=== PATIENT | female | born 1990 | race Two or more races ===

== ENCOUNTER 2024-02-19 02:27 | Emergency (ER) | payer OTHER, SELFPAY ==
--- NOTE | 2024-02-19 | ECG_ITS ---
Test Reason : OVERDOSE Blood Pressure : / mmHG Vent. Rate : 060 BPM Atrial Rate : 060 BPM P-R Int : 130 ms QRS Dur : 088 ms QT Int : 396 ms P-R-T Axes : -12 079 042 degrees QTc Int : 396 ms Normal sinus rhythm Normal ECG No previous ECGs available Referred By: Generic ED Physician Electronically Signed By:ROWDY DUGAN
[2024-02-19 02:30] VITALS: BP 144/105; PULSE 103; RESP 24; TEMP 36.5; O2SAT 100; BMI 28.6
[2024-02-19 02:47] VITALS: BP 136/84; PULSE 83; RESP 15; TEMP 36.7; O2SAT 100
--- NOTE | 2024-02-19 02:57 | PC.NURSE ---
Patient arrived and changed over into hospital attire, initiated 1:1 coverage. took hair anna, wristlet, and earrings, along with cell phone. Clothing secured in tamanna port shelf 1.
--- NOTE | 2024-02-19 03:15 | PC.NURSE ---
Addendum entered by Lois Martines 02/19/24 04:26: Poison prevention called, provider Carmina made aware of recommendations. Addendum entered by Lois Martines 02/19/24 03:59: Pt reports taking pills at approximately 0100. Original Note: This technical writer and editor assumed care of this Pt at this time. Pt A&Ox3, tearful, reports she took an unknown amount of her prescribed adderall. Pt reports she let them devolve in her mouth and then had juice, Pt reports vomiting shortly after and did not see pill fragments. Spouse at bedside. 1:1 at bedside for safety.
[2024-02-19 03:30] LABS: Hematocrit 36.8 % (37.0-47.0); Hemoglobin 12.3 g/dl (12.0-16.0); Mean Corpuscular HGB Conc 33.4 g/dl (31.0-35.0); Mean Corpuscular Hemoglobin 25.8 pg (27.0-33.0); Mean Corpuscular Volume 77.1 fL (80.0-98.0); Mean Platelet Volume 9.8 fL (9.4-12.3); Platelet Count 286 X10*3/uL (160-400); Red Blood Count 4.77 X10*6/uL (4.20-5.50); White Blood Count 8.1 X10*3/uL (4.8-10.8)
--- NOTE | 2024-02-19 03:43 | ED_ITS ---
HPI - Psych General Chief Complaint: Psychiatric Symptoms Stated Complaint: OD adderall - intentional Time Seen by Provider: 02/19/24 03:11 Source: patient Mode of arrival: ambulatory Limitations: no limitations History of Present Illness ED Provider: daylin WYMAN Narrative: Patient's history of ADHD under increased stress took about 5-10 pills of 20 mg adderall at around at around 01:30. Patient had medicine in her hand putting in her mouth taking spitting it out putting in the mouth spitting it out and then forcefully vomited does not nausea and tearful no prior history of overdose in the past Related Data Allergies Allergy/AdvReac Type Severity Reaction Status Date / Time No Known Allergies Allergy Verified 02/19/24 02:32 Review of Systems 2 Review of Systems: Yes all other systems are reviewed and are negative [facility], [facility] Social History Social History Smoked in Last 30 Days: No Substance Use Type: Marijuana Advance Directives: No Patient : No Physical Exam 2 Vital Signs: Vital Signs: Last Vital Signs Temp 98.0 F 02/19/24 02:47 Pulse 83 02/19/24 02:47 Resp 15 02/19/24 02:47 BP 136/84 02/19/24 02:47 Pulse Ox 100 02/19/24 02:47 O2 Del Method Room Air 02/19/24 02:47 BMI result Body Mass Index 28.6 Appearance: Alert. Oriented X3. No acute distress. Tearful anxious denies any SI Eyes: PERRLA, No Nystagmus ENT: Pharynx normal. Oral Mucosa moist Neck: Normal inspection. Neck supple. CVS: Normal heart rate and rhythm. Pulses normal. Respiratory: No respiratory distress. Equal air entry bilateral, no wheezing/rales/rhonchi Abdomen: Soft and nontender. Bowel sounds are present, no mass palpable, no CVA tenderness Skin: Skin warm and dry. Normal skin color. Normal skin turgor. Extremities: No lower extremity edema. No calf tenderness Neuro: Oriented X 3. No motor deficit. Medications Administered Discontinued Medications Generic Name Dose Route Start Last Admin Trade Name Freq PRN Reason Stop Dose Admin Acetaminophen 650 mg 02/19/24 06:40 02/19/24 07:04 Acetaminophen 325 Mg Tablet PO 02/19/24 06:41 650 mg ONCE ONE Administration Sodium Chloride 1,000 mls @ 999 mls/hr 02/19/24 04:15 02/19/24 05:56 Ns IV 02/19/24 05:15 Infused .Q1H1M ONE Infusion Ondansetron HCl 4 mg 02/19/24 05:55 02/19/24 05:59 Ondansetron Hcl 4 Mg/2 Ml Vial IVPUSH 02/19/24 05:56 4 mg ONCE ONE Administration Medical Decision Making Medical Decision Making [facility] Narrative: Patient with the alleged overdose on Adderall still patient's heart rate is 60 after 4 hours of medication intake will continue to watch get care team involved Differential Diagnosis Differential Diagnoses: The differential diagnosis associated with the presentation includes Lab Data [facility] Lab Attestation statement: I reviewed the patient's lab results. 02/19/24 03:26 02/19/24 03:26 Labs: Lab Results 02/19/24 02/19/24 02/19/24 Range/Units 03:26 04:31 04:33 WBC 8.1 (4.8-10.8) X10*3/uL RBC 4.77 (4.20-5.50) X10*6/uL Hgb 12.3 (12.0-16.0) g/dl Hct 36.8 L (37.0-47.0) % MCV 77.1 L (80.0-98.0) fL MCH 25.8 L (27.0-33.0) pg MCHC 33.4 (31.0-35.0) g/dl RDW 16.0 (11.0-16.0) % Plt Count 286 (160-400) X10*3/uL MPV 9.8 (9.4-12.3) fL Absolute Nucleated RBC 0.000 (0.0-0.012) X10*3/uL Nucleated RBC % (auto) 0.0 (0.0-0.2) /100WBC Sodium 139 (135-145) mmol/L Potassium 4.2 (3.3-5.1) mmol/L Chloride 107 (96-108) mmol/L Carbon Dioxide 19 L (22-29) mmol/L Anion Gap 17 (12-20) BUN 12 (9-16) mg/dL Creatinine 0.92 (0.5-1.4) mg/dL Estim Creat Clear Calc 89.8 Estimated GFR > 60 Random Glucose 103 (60-115) mg/dL Lactic Acid 1.7 (0.5-2.0) mmol/L Calcium 9.7 (8.4-10.2) mg/dL Magnesium 2.4 (1.6-2.6) mg/dL Total Bilirubin 0.3 (0.0-1.0) mg/dL Direct Bilirubin 0.1 (0.0-0.5) mg/dL AST 30 (5-31) U/L ALT 23 (0-31) U/L Alkaline Phosphatase 73 (39-117) U/L Total Creatine Kinase 308 H (26-140) U/L Total Protein 7.7 (6.5-8.0) g/dL Albumin 4.4 (3.5-5.0) g/dL Beta HCG, Quant < 2 mIU/mL Urine Color Yellow Urine Appearance Clear Urine pH 6.5 (5.0-9.0) Ur Specific [place] 1.010 (1.005-1.025) Urine Protein Negative (Neg-Trace) mg/dL Urine Glucose (UA) Negative (Negative) mg/dL Urine Ketones Negative (Negative) mg/dL Urine Blood Trace H (Negative) Urine Nitrite Negative (Negative) Ur Leukocyte Esterase Trace H (Negative) Urine RBC 0-2 (0-2) /HPF Urine WBC 0-5 (0-5) /HPF Ur Squamous Epith Cells 3-5 (0-2) /HPF Urine Bacteria None Seen (None Seen) Hyaline Casts 0-2 (0-2) /LPF Salicylates < 5.0 L (15-30) mg/dL Urine Opiates Screen Not Detected (Not Detect) Ur Buprenorphine Scrn Not Detected (Not Detect) ng/mL Ur Oxycodone Screen Not Detected (Not Detect) ng/mL Urine Methadone Screen Not Detected (Not Detect) ng/mL Urine Fentanyl Screen Not Detected (Not Detect) Acetaminophen < 3 (<30) mcg/mL Ur Barbiturates Screen Not Detected (Not Detect) Ur Phencyclidine Scrn Not Detected (Not Detect) Ur Amphetamines Screen POSITIVE H (Not Detect) U Benzodiazepines Scrn Not Detected (Not Detect) Urine Cocaine Screen Not Detected (Not Detect) U Marijuana (THC) Screen Not Detected (Not Detect) Ethyl Alcohol < 10 mg/dL Independent Interpretation I performed an independent interpretation of an: EKG Interpretation: Normal sinus rhythm heart rate 60 beats per minute normal interval normal axis no acute T-wave or ST changes no acute ischemia QTC 396msec Discharge Plan Discharge Clinical Impression: Depression, Overdose Patient Disposition: Still a Patient Interventions: Webb-Suicide Risk Severity Scale Last Done: 02/19/24 02:47 Print Language: Belizean
[2024-02-19 03:50] LABS: Acetaminophen LAB < 3 mcg/mL (<30); Salicylate < 5.0 mg/dL (15-30)
[2024-02-19 03:54] LABS: Anion Gap 17 (12-20); Blood Urea Nitrogen 12 mg/dL (9-16); Calcium 9.7 mg/dL (8.4-10.2); Carbon Dioxide 19 mmol/L (22-29); Chloride 107 mmol/L (96-108); Creatinine Clr Calc Pharmacy 89.8; Estimated Glomerular Filt Rate > 60; Ethanol < 10 mg/dL; Glucose Random 103 mg/dL (60-115); HCG Quantitative < 2 mIU/mL; Magnesium 2.4 mg/dL (1.6-2.6); Potassium 4.2 mmol/L (3.3-5.1); Sodium 139 mmol/L (135-145)
[2024-02-19] MEDS: 0.9 % Sodium Chloride 1,000 ML 999 ML IV (04:34)
[2024-02-19 04:38] LABS: Appearance Urine Clear; Color Urine Yellow; Glucose Urine UA Negative (Negative); Leukocyte Esterase Urine Trace (Negative); Nitrite Urine Negative (Negative); PH 6.5 (5.0-9.0); UMIC TRIGGER UACC YES; Urine Blood Trace (Negative); Urine Ketones Negative (Negative); Urine Protein Negative (Neg-Trace)
[2024-02-19 04:41] LABS: Bacteria Urine None Seen (None Seen); Hyaline Casts Urine 0-2 /LPF (0-2); RBC Urine 0-2 /HPF (0-2); WBC Urine 0-5 /HPF (0-5)
[2024-02-19 04:41] LABS: Alanine Aminotransferase 23 U/L (0-31); Albumin Level 4.4 g/dL (3.5-5.0); Alkaline Phosphatase 73 U/L (39-117); Aspartate Amino Transferase 30 U/L (5-31); Bilirubin Direct 0.1 mg/dL (0.0-0.5); Bilirubin Total 0.3 mg/dL (0.0-1.0); Total Protein 7.7 g/dL (6.5-8.0)
[2024-02-19 04:50] LABS: Amphetamine Screen Urine POSITIVE (Not Detect); Barbiturates, Urine Not Detected (Not Detect); Benzodiazepines Screen Urine Not Detected (Not Detect); Buprenorphine Scr Not Detected (Not Detect); Cannabinoid Screen Urine Not Detected (Not Detect); Cocaine Screen Urine Not Detected (Not Detect); Fentanyl, urine Not Detected (Not Detect); Methadone Screen, Urine Not Detected (Not Detect); Opiate Screen Urine Not Detected (Not Detect); Oxycodone Screen Urine Not Detected (Not Detect); Phencyclidine Screen Urine Not Detected (Not Detect)
[2024-02-19 04:51] LABS: Lactic Acid 1.7 mmol/L (0.5-2.0)
[2024-02-19] MEDS: ondansetron HCL 4 MG/2 ML VIAL IVPUSH (05:59)
[2024-02-19] MEDS: Acetaminophen 325 MG TABLET 650 MG PO (07:04)
--- NOTE | 2024-02-19 07:36 | PC.NURSE ---
This RN obtained 0730 labs via straight stick, emotional support provided to patient. Pt aware of plan of care at this time
[2024-02-19 07:48] LABS: VBG Base Excess 4.9 mmol/L; VBG HCO3 29 mmol/L (22-26); VBG pCO2 40 mmHg; VBG pH 7.46 (7.32-7.43); VBG pO2 39 mmHg
[2024-02-19 07:53] LABS: Lactic Acid 1.2 mmol/L (0.5-2.0)
[2024-02-19 07:55] LABS: Venous Blood Gas Refer to POC result
[2024-02-19 07:55] LABS: Alanine Aminotransferase 22 U/L (0-31); Albumin Level 4.7 g/dL (3.5-5.0); Alkaline Phosphatase 80 U/L (39-117); Anion Gap 13 (12-20); Aspartate Amino Transferase 29 U/L (5-31); Bilirubin Total 0.6 mg/dL (0.0-1.0); Blood Urea Nitrogen 9 mg/dL (9-16); Calcium 9.8 mg/dL (8.4-10.2); Carbon Dioxide 21 mmol/L (22-29); Chloride 108 mmol/L (96-108); Creatinine Clr Calc Pharmacy 98.3; Estimated Glomerular Filt Rate > 60; Glucose Random 115 mg/dL (60-115); Lipase 19 U/L (8-78); Potassium 3.9 mmol/L (3.3-5.1); Sodium 138 mmol/L (135-145); Total Protein 8.2 g/dL (6.5-8.0)
[2024-02-19 07:56] LABS: Acetaminophen LAB < 3 mcg/mL (<30); Salicylate < 5.0 mg/dL (15-30)
--- NOTE | 2024-02-19 10:04 | PC.NURSE ---
Pt continues to call staff to bedside, pt has multiple complaints of BEAULIEU, feeling like her throat is dry, then feeling like her throat is tight, pt is able to speak full sentences, she is very anxious and tearful at bedside. Labs returned, pt medically cleared by MD, at this time awaiting for [facility] to assess patient. Pt provded PO intake, food at this time. Emotional support continued to be provided to patient
[2024-02-19 10:05] VITALS: BP 132/75; PULSE 75; RESP 18; O2SAT 100
[2024-02-19 12:55] VITALS: BP 132/75; PULSE 75; RESP 18; TEMP 36.6; O2SAT 100
== END 2024-02-19 13:16 | disposition home or self-care (01) ==
PROVIDERS: Emergency Provider Internal Medicine; PCP Physician Assistant
DX: T43.622A Poisoning by amphetamines, intentional self-harm, initial encounter (principal); R45.851 Suicidal ideations; F33.1 Major depressive disorder, recurrent, moderate; R10.2 Pelvic and perineal pain; R11.10 Vomiting, unspecified; Z79.899 Other long term (current) drug therapy; Y92.89 Other specified places as the place of occurrence of the external cause; Z51.81 Encounter for therapeutic drug level monitoring
CPT/HCPCS: 36415; 80048; 80053; 80076; 80143; 80179; 80307; 81001; 82550; 82803; 83605; 83690; 83735; 84702; 85027; 93005; 96361; 96374; 99285; J2405

== ENCOUNTER → 2024-02-19 03:07 | Outpatient (BNV) | payer OTHER, SELFPAY | PROVIDERS: Emergency Provider Internal Medicine; PCP Physician Assistant; Visit Provider Internal Medicine | DX: R41.82 Altered mental status, unspecified (principal) | CPT/HCPCS: 93010 ==

== ENCOUNTER 2024-06-25 21:01 | Inpatient (IN) | payer OTHER, SELFPAY ==
--- NOTE | 2024-06-25 | ECG_ITS ---
Test Reason : OD Blood Pressure : */* mmHG Vent. Rate : 70 BPM Atrial Rate : 70 BPM P-R Int : 134 ms QRS Dur : 86 ms QT Int : 412 ms P-R-T Axes : 51 76 25 degrees QTcB Int : 444 ms Normal sinus rhythm Nonspecific T wave abnormality Abnormal ECG When compared with ECG of 19-Feb-2024 03:07, Nonspecific T wave abnormality, worse in Anterior leads Referred By: Azul Rg Electronically Signed By: ROWDY DUGAN
[2024-06-25 21:19] VITALS: BP 133/80; PULSE 70; O2SAT 100
[2024-06-25 21:20] VITALS: BP 117/69; PULSE 71; RESP 13; TEMP 36.6; O2SAT 100; BMI 29.1
[2024-06-25 21:24] VITALS: BP 117/69; PULSE 73; RESP 12; TEMP 36.6; O2SAT 100
--- NOTE | 2024-06-25 21:38 | PC.NURSE ---
Addendum entered by Carlene Garcia RN 06/25/24 22:45: belongings on shelf 1 in the [facility] Original Note: pt biba from home voluntarily, SI attempt, pt is calm and cooperative. Pt changed over placed on the monitor, belonging searched and secured in locker 1. pt is a& ox4, able to make her needs known, complainig of headache and feeling sleepy.
--- NOTE | 2024-06-25 21:50 | ECG_ITS ---
Test Reason : OVERDOSE Blood Pressure : */* mmHG Vent. Rate : 63 BPM Atrial Rate : 63 BPM P-R Int : 156 ms QRS Dur : 84 ms QT Int : 412 ms P-R-T Axes : 50 73 42 degrees QTcB Int : 421 ms Normal sinus rhythm Normal ECG When compared with ECG of 25-Jun-2024 21:32, No significant changes seen Referred By: Azul Rg Electronically Signed By: ROWDY DUGAN
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
--- OUTSIDE RECORDS SUMMARY | 2024-06-25 22:16 | XMS_ITS | Data Portability ---
Author Organization [facility], [address] Address [address] [place] [address] Assessment No assessment recorded. Plan of Treatment Reminders Order Date Submit Date Provider Last Modified By Organization Details Last Modified Time Details Appointments None recorded. Lab rapid flu (A+B) 2022 023 [email or web address] 247 _[facility], [address] [place], [place] [address], [address], 3 12:35:07 rapid SARS CoV 2 Ag, QL IA, respiratory specimen 2022 023 [email or web address] 247 20995[address]le, [address] [place] [address] [place], [address], 3 12:35:07 rapid strep group A, throat 2022 023 [email or web address] 247 _[address] cole, [address] [place] [address], [address], 3 12:35:07 Referral None recorded. Procedures None recorded. Surgeries None recorded. Imaging None recorded. Medication Orders benzonatate 200 mg capsule 2022 023 [facility] #[id number], [address] [facility] [place], [address], 3 12:35:11 Patient TargetsNo targets recorded. Patient Instructions Encounter Date Encounter Id Patient Instructions Last Modified By Organization Details Last Modified Time 08/31/2022 [id number] An upper respiratory infection is a viral illness that typically self-resolves within 7-10 days. Treatment is supportive, including, rest, fluids, humidifier, and sometimes cough suppressants and/or nasal decongestants to help reduce symptoms until your body's immune system kills the virus and the body self-recovers. If symptoms worsen, go to the ER. [email or web address] Not available 08/31/2022 12:35:05 Reason for Referral None Reported. Results Created Date Observation Date Name Description Value Unit Range Abnormal Flag Note LastModifiedBy Organization Detail LastModifiedTime 09/01/1908/31/2022 rapid SARS CoV 2 Ag, QL IA, respi rator y speci men Unknown Analyte Normal =Negat patricio Not Available [address] [place] [address], [place], [address], 08/31/2022 10:57:39 09/01/19 23 08/31/2022 rapid SARS CoV 2 Ag, QL IA, respi rator y speci men Unknown Analyte negati ve Not Available [address] [place] [address] [place], [address], 08/31/2022 10:57:39 09/01/19 23 08/31/2022 rapid flu (A+B) Unknown Analyte Normal = Negati ve Not Available [address] [place] [address] [place], [address], 08/31/2022 10:57:33 09/01/19 23 08/31/2022 rapid flu (A+B) Unknown Analyte Normal = Negati ve Not Available [address] [place] [address] [place], [address], 08/31/2022 10:57:33 09/01/19 23 08/31/2022 rapid flu (A+B) Unknown Analyte negati ve Not Available [address] [place], [place] [address], [address], 08/31/2022 10:57:33 09/01/19 23 08/31/2022 rapid flu (A+B) Unknown Analyte negati ve Not Available [address] [place] [address], [address], 08/31/2022 10:57:33 09/01/19 23 08/31/2022 rapid strep group A, throa t Unknown Analyte Normal = Negati ve Not Available [address] [place] [address], [address], 08/31/2022 10:57:45 09/01/1908/31/2022 rapid strep group A, throa t Unknown Analyte negati ve Not Available [address] [place] [address], [phone], 08/31/2022 10:57:45 Result Notes None recorded. Problems No Known Problems Medical Equipment None Reported. Allergies No known drug allergies Medications Name Sig Start Date Stop Date Status Note LastModified by Organization Details LastModified Time benzonatate 200 mg capsule TAKE 1 CAPSULE BY MOUTH THREE TIMES A DAY FOR 7 DAYS active Not Available Not Available No t Available Prenatabs FA 29 mg-1 mg tablet TAKE 1 TABLET BY MOUTH EVERY DAY 08/31 completed Not Available Not Available Not Available Vitals Date Recorded Body height Body mass index (BMI) Body weight Pain severity - 0-10 verbal numeric rating [Score] - Reported Respiratory rate Oxygen saturation Oxygen saturation in Arterial blood by Pulse oximetry Heart rate Body temperature Systolic blood pressure Diastolic blood pressure Provider Name and Address Organization Details Last Updated DateTime 3 165.1 cm 29.6 kg/m2 84423.4 4 g 7 18 /min 100 % 100 % 77 /min 98.7 [degF] 112 mm[Hg] 76 mm[Hg] Mehnaz MCDOWELL - [facility] 3 11:01:14 Social History Question Answer Notes LastModified by Organizat ion Details LastModified Time Tobacco Smoking Status Never Smoker Mehnaz landrum [place] - [facility] 08/31/2022 10:59:49 What Is Your Level Of Alcohol Consumption? Occasional Information not available 08/31/2022 How Many Times Per Week Do You Consume Alcohol? Less Than 1 Time Per Week Information not available 08/31/2022 Do You Use Any Illicit Or Recreational Drugs? No Information not available 08/31/2022 Have You Recently Traveled Abroad? No Information not available 08/31/2022 Do You Or Have You Ever Used Any Other Forms Of Tobacco Or Nicotine? No Information not available 08/31/2022 Sex: Unknown Functional Status None recorded. Mental Status None recorded. Family History Relationship Description Onset Age of this Age Resolved Age Notes LastModified by Organization Details LastModified Time Father Diabetes mellitus [email or web address] Not available 2022 10:59:27 Mother Hypertensive disorder [email or web address] Not available 2022 10:59:33 Medical History No medical history recorded. Gynecological History Statement/Question Response Date of LMP 08/17/2022 Is there any chance of ? No Obstetrics History GPAL:G 0 P 0 0 0 0 Past Encounters Encounter ID Performer Location Encounter Start Date Encounter Closed Date Diagnosis/Indication Diagnosis SNOMED-CT Code Diagnosis ICD10 Code Diagnosis Note [id number] [address] [place] [address] 07/07/2018 09:58:27 07/07/2018 10:19:50 [id number] [address] [facility] [address] [place] [address] 02/08/2018 15:35:58 02/08/2018 16:31:29 [id number] [address] [place] [address] 01/10/2019 09:29:42 01/10/2019 10:01:32 [id number] [address] [place] [address] 03/28/2019 13:02:57 03/28/2019 14:55:30 [id number] [address] [place] [address] 02/10/2018 08:47:26 02/10/2018 09:37:06 [id number] KEE DALTON MD [address] [place] [address] 08/31/2022 10:15:05 08/31/2022 12:36:05 Upper respiratory infection 85362515 J06.9 Cough 55028378 R05.9 CoughBlack Elderberry Syrup:1-2 tsp 2-3 times a day for 5 days as needed for coughing.S ambucol Black Elderberry Original Syrup (available at [employer] )Na Herbs Black Elderberry Syrup, 5.4-Ounce Bottle (available at [employer] or [employer]) Use a cool mist humidifier in the room that you sleep to add moisture to the air, which should soothe the airways and help loosen any mucus that may be present. Health Concerns Section Related Observation LastModified by Organization Detai ls LastModified Time None Recorded Concern Status LastModified by Organization Details LastModified Time None Recorded Advance Directives Directive None Recorded Payers Encounter Date Sequence Insurance Name Policy Number Policy Garza Covered Member ID Garza Member ID Guarantor Name 02/10/2018 1 [facility] [id number] 1 [employer] Tess [id number] [employer] 07/07/2018 1 [facility] [id number] 1 [employer] Tess [id number] Nadiw[employer] Y Tess 01/10/2019 1 [facility] [id number] 1 [employer] Tess [id number] Nadiwska Y Tess 03/28/2019 1 [facility] [id number] 1 [employer] Tess [id number] Nadiw[employer] Y Tess 08/31/2022 1 [facility] [id number] 1 N[employer] Tess [id number] Nadiw[employer] Tess Notes Date Note Type Note Provider Name and Address Organization Details Recorded Time 08/31/2022 text/html 31 yo female presents with a 5 day hx of congestion, sore throat, headache, SOB on exertion, chest discomfort when coughing, and intermittent body aches. There are no other symptoms. She states no known exposure to covid. She took a home covid test which was negative. KEE DALTON MD [address] [place], [address], [place] - [facility] 09/05/2022 18:52:10 OBGyn Episode No OBEpisode recorded.
--- OUTSIDE RECORDS SUMMARY | 2024-06-25 22:16 | XMS_ITS | Patient Health Record ---
Author Organization [facility] [address] [place] Address [address] [place] [address] Care Team Providers Care Alterations Sewer Name Role Phone Laura Abreu Primary Care Provider Stevan Fonseca Unavailable [phone] Allergies No Known Allergies Reason For Referral No Information Medications Medication SIG (Take, Route, Fr equency, Duration) Notes Start Date End Date Status Voltaren 1 % as directed Externally 12/24/2023 Active Adderall 15 MG 1 tablet Orally Twice a day Active Social History Tobacco Use: Social History Observation Description Date Details (start date - stop date) Never Smoker NA - NA Tobacco Use/Smoking Question Answer Notes Are you a: nonsmoker Additional Findings: Tobacco Non-User Current no n-smoker Alcohol Screen Question Answer Notes Did you have a drink contain ing alcohol in the past year? Yes How often did you have a dri nk containing alcohol in the past year? Monthly or less (1 point) Points 1 Interpretation Negative Tobacco use other than smoking: Question Answer Notes Are you an other tobacco user? No Problems Problem Type SNOMED Code ICD Code Onset Dates Problem Status W/U Status Risk Notes Problem Acquired hallux valgus (16648128) Hallux valgus (acquired), left foot (M20.12) Active confirmed Problem Acquired hallux valgus (57686999) Hallux valgus (acquired), right foot (M20.11) Active confirmed Vital Signs Height 5ft 5in in 12/24/2023 Weight 180 lbs 12/24/2023 BMI 29.95 kg/m2 12/24/2023 Encounters Encounter Location Date Provider Diagnosis [facility] [place] [address] [place] [address] 12/24/2023 Stevan Mcguire Pain in right foot M79.671 ; Pain in left foot M79.672 ; Hallux valgus (acquired), left foot M20.12 and Hallux valgus (acquired), right foot M20.11 Assessments Encounter Date Diagnosis (ICD Code) Assessment Notes Treatment Notes Treatment Clinical Notes Section Notes 12/24/2023 Pain in right foot (ICD-10 - M79.671) 12/24/2023 Pain in left foot (ICD-10 - M79.672) 12/24/2023 Hallux valgus (acquired), left foot (ICD-10 - M20.12) 12/24/2023 Hallux valgus (acquired), right foot (ICD-10 - M20.11) Plan Of Treatment Pending Test Test Name Order Date X ray : Foot, left 3V 06/25/2023 X ray : Foot, right 3V 06/25/2023 Insurance Providers Payer Name Payer Address Payer Phone Subscriber Number Group Number Insured Name Patient Relationship to Insured Coverage Start Date Coverage End Date [facility] [address] [place] [address] [phone] [id number] Joseph Pulido Self - patient is the insured Medical (General) History Medical History History ICD Code covid-19 Headaches/Migraines High blood pressure Chicken pox Surgical History Surgery Date(Month/Year)
--- OUTSIDE RECORDS SUMMARY | 2024-06-25 22:16 | XMS_ITS ---
[facility] Organization [facility] Address [address] [facility] [place] [address] Care Team Providers Care Lay Out Helper Name Role Phone Faymichael Laura Primary Care Provider Stevan Fonseca [phone] Allergies No Known Allergies REASON FOR VISIT Last PCP VISIT: 04/2023, Foot pain Social History Tobacco Use: Social History Observation Description Date Details (start date - stop date) Never Smoker NA - NA Tobacco Use/Smoking Question Answer Notes Are you a: nonsmoker Additional Findings: Tobacco Non-User Current no n-smoker Alcohol Screen Question Answer Notes Did you have a drink containing alcohol in the p ast year? Yes Points 0 Interpretation Negative Tobacco use other than smoking: Question Answer Notes Are you an other tobacco user? No Problems Problem Type SNOMED Code ICD Code Onset Dates Problem Status W/U Status Risk Notes Problem Acquired hallux valgus (00353755) Hallux valgus (acquired), left foot (M20.12) Active confirmed Problem Acquired hallux valgus (12242914) Hallux valgus (acquired), right foot (M20.11) Active confirmed Vital Signs Height 5 ft 5 in in 06/25/2023 Weight 180 lbs 06/25/2023 BMI 29.95 kg/m2 06/25/2023 Encounters Encounter Location Date Provider Diagnosis [facility] [address] [place] [address] 06/25/2023 Stevan Mcguire Pain in left foot M79.672 ; Pain in right foot M79.671 ; Hallux valgus (acquired), left foot M20.12 and Hallux valgus (acquired), right foot M20.11 Assessments Encounter Date Diagnosis (ICD Code) Assessment Notes Treatment Notes Treatment Clinical Notes Section Notes 06/25/2023 Pain in left foot (ICD-10 - M79.672) 06/25/2023 Pain in right foot (ICD-10 - M79.671) 06/25/2023 Hallux valgus (acquired), left foot (ICD-10 - M20.12) 06/25/2023 Hallux valgus (acquired), right foot (ICD-10 - M20.11) Plan Of Treatment Pending Test Test Name Order Date X ray : Foot, left 3V 06/25/2023 X ray : Foot, right 3V 06/25/2023 Next Appt Details Follow Up: 6 Months, Reason: Progress Notes * Arias PULIDOB:1990 (32 yo F)Acc No.[id number]:06/25/2023 Progress Notes Patient:?Tess Joseph Provider:?Stevan Mcguire DPM :1990???Age:32 Y???Sex:Female D ate:06/25/2023 Address:[address] [place], [place] [id number] Pcp:Laura Abreu Subjective: * Chief Complaints: * ???Last PCP VISIT: 04/2023Fo ot pain * HPI: ???Foot Pain:?Nature:?aching, tenderness.?Location?B/L, R>L, Great toe joint.?Duration:?several months.?Onset/Cause:?genetic.?Course:?worse, intermittent--no pattern to her pain.?Aggrevated:?any pressure.?Treatments:?soaking.?Quality/Severity?5, scale 1-10.? * ROS:?General/Constitutional:?Nausea?denies, denies.?Vomiting?denies, denies.?Hunger Thirst?denies, denies.?Loss appetite?denies, denies.?Chills?denies, denies.?Fatigue?admits, denies.?Fever?denies, denies.?Night Sweats denies, denies.?Unexplained weight loss?denies, denies.?Unexplained weight gain?denies.?Ophthalmologic:?Blurred vision?denies.?Red eye?denies.?HEENTM:?Dentures?denies, denies.?Dizziness?denies, denies.?Glasses/contacts?admits, denies.?Retinopathy?denies, denies.?Blurred/double vision?denies, denies.?TMJ?denies, denies.?Discharge/drainage?denies, denies.?Implants?denies, denies.?Sore throat?denies.?Dental implants?denies.?Hard of hearing ?denies, denies.?Difficulty chewing/swallowing/speaking?denies, denies.?Nose bleeds?denies, denies.?Sore mouth?denies, denies.?Swollen glands?denies.?Respiratory:?On Oxygen?denies, denies.?Pneumonia/pleurisy?denies, denies.?Bronchitis?denies, denies.?Emphysema?denies, denies.?Coughing?denies, denies.?Cough blood?denies, denies.?Shortness of breath?denies, denies.?Wheezing?denies, denies.?Cardiovascular:?Pacemaker?denies, denies.?MVP?denies, denies.?WPW?denies, denies.?CHF?denies, denies.?Heart attack?denies, denies.?Septal defect?denies, denies.?Rapid beat?denies, denies.?Chest pain ?denies, denies.?Atrial Fib.?denies, denies.?Murmur/Palpitations?denies, denies.?Gastrointestinal:?Hemorrhoids?denies, denies.?Stomach/Abdominal pain?denies, denies.?Dark blood stool?denies, denies.?Irritable bowel ?denies, denies.?Constipation?denies, denies.?Diarrhea?denies, denies.?Vomiting?denies.?Hematology:?Swelling?denies, denies.?Clots?denies.?Varicose Veins?denies.?Bruising?denies, denies.?Bleeding problem?denies, denies.?Genitourinary:?Blood urine?denies, denies.?Frequent/Painfu/urination/bladder control?denies, denies.?Kidney stones?denies, denies.?Infection (UTI)?denies, denies.?Nephropathy?denies, denies.?sex trans dis (STD)?denies.?Prostate?denies.?Musculoskeletal:?Hammertoes?denies, denies.?Bunions?admits, denies.?Scoliosis/kyphosis?denies.?Back Pain?denies.?Muscle Cramps/ Resting?denies.?Muscle cramps / walking?denies, denies.?Generalized aches and pains?denies, denies.?Weakness?denies, denies.?Integ.:?Brown?denies, denies.?Scars?denies, denies.?Corns/calluses?denies, denies.?Ingrown nails?denies, denies.?Painful nails?denies, denies.?Open Sores?denies.?Rashes?denies, denies.?Neurologic:?Difficulty sleeping?denies, denies.?Bipolar?denies.?Brain disorder?denies, denies.?Numbness?denies.?Balance trouble?denies, denies.?Confusion?denies, denies.?Fainting/blackouts?denies, denies.?Headache?denies.?Tingling?denies.?Tremors?denies, denies.? * Medical History:? * Surgical History:?Denies Pas t Surgical History * Hospitalization/Major Diagno stic Procedure:?Denies Past Hospitalization * Family History:?Mother: jasmin winchester, foot problems, diagnosed with Diabetic - NIDDM.?Father: alive, diagnosed with Diabetic - NIDDM.? * Social History:?Tobacco Use:?Tobacco Use/Smoking?Are you a:?nonsmoker ?Additional Findings: Tobacco Non-User?Current non-smoker ?Tobacco use other than smoking?Are you an other tobacco user??No ???Drugs/Alcohol:?Drugs?Have you used drugs other than those for medical reasons in the past 12 months??No ?Alcohol Screen?Did you have a drink containing alcohol in the past year??Yes ?Points?0 ?Interpretation?Negative ???Miscellaneous:?Caffeine: yes, frequency:. ?Children: yes, 1. ?Exercise: yes, hiking, walking,running. ?Marital status: . ?Occupation: [employer] - Dept of [employer]. * Medications:?None * Allergies:?N.K.D.A.yes[Aller gies Verified] Objective: * Vitals:?Ht:5 ft 5 in, Wt:180 , BMI:29.95, Shoe size:8.5, Ht-cm: 165.1 cm. * Examination: ???General Examination: ?GENERAL APPEARANCE:?pleasant, alert, well nourished, well developed, well hydrated, with good attention to hygene/body habitus, and in no acute distress.?ORIENTED:?person,place, and time.?Neurological: ?SENSORY:?Neurological exam is normal, pain sensation normal, vibration sensation intact, pinprick sensation is normal in the lower extremities, denies, tingling, burning, anesthesia, paresthesia, hyperesthesia, B/L.?TINEL'S COMPRESSION:?Negative tarsal tunnel, amy pedis, and medial calcaneal nerves B/L.?BABINSKI REFLEX:?absent.?Neuroma Pain: ?PALPATION:?No interspace pain noted on palpation.?Vascular: ?DP PULSES:?2/4, B/L.?PT PULSES:?2/4, B/L.?CAPILLARY FILL TIME:?3 secs. per digit, B/L.?SKIN TEMPERTURE GRADIENT OF THE LOWER EXTERMITIES:?warm to cool, proximal to distal, B/L.?HAIR GROWTH/TEXTURE/ELASTICITY/TURGOR:?normal, B/L.?PIGMENTATION:?normal, B/L.?EDEMA:?no edema.?TELANGECTASIA:?absent.?VARICOSITIES:?absent.?Dermatologic: ?SKIN FINDINGS:?Skin exam reveals normal texture, elasticity, and tugor. There are no masses. The interspaces are clear, B/L .?Orthopedic: ?MUSCLE STRENGTH:?5/5 all groups in a symmetrical fashion , B/L.?GAIT ABNORMALITY:?pronated, abducted, B/L.?BUNION:? Medially prominent 1st MPJ, (+) Pain on palpation, B/L, Lateral tracking 1st MPJ incompletely reducible.?X-Rays - IMAGING REPORT: ?Clinical Indication(s):? Evaluate Biomechanical Deformity.?Views:? 3 views of Foot, B/L.?Findings:? normal bone and soft tissue density consistent for patients age and sex.?Foot structure:? reveals excess pronation with, anterior break in cyme line.?HAV:? increased First Intermetatarsal angle and Hallux Abductus angle consistent with Bunion deformity noted, hypertrophy of the dorsal and medial 1st MTH without subchondral cyst, moderate.? * Physical Examination:?L2999 Supplies:?Insoles-SSOT- graphite?E - W 9-10.5 / M 7-8.5.? Assessment: * Assessment: 1.?Pain in right foot - M79. 671?2.?Pain in left foot - M79.672 (Primary)?3.?Hallux valgus (acquired), left foot - M20.12?4.?Hallux valgus (acquired), right foot - M20.11? Plan: * Treatment: 2.?Pain in right foot?Imaging: X ray : Foot, right 3V * Procedure Codes:?87444 X-RAY EXAM OF LEFT FOOT 3V, Modifiers: 26 , [id number] X-RAY EXAM OF RIGHT FOOT 3V, Modifiers: 26 , [id number] Insoles-Soft sole ($50) * Preventive Medicine:? ??Counseling:?Discussion:?-03: Office or other outpatient visit for the evaluation and management of a new patient, which required a medically appropriate history and/or examination and LOW level of DECISION MAKING for: 1 STABLE ACUTE UNCOMPLICATED PROBLEM, 2 OR MORE MINOR PROBLEMS, OR 1 STABLE CHRONIC PROBLEM, THAT POSE(S) A LOW RISK FOR MORBIDITY/MORTALITY. The visit on the day of the encounter encompassed interpreting the data and educating the patient as to the nature of their condition, treatment options available according to their individual PMH, meds, allergies, and overall health/living conditions, as well as any potential risks or complications that may occur from a failure to adhere to, and participate in, the recommended course of therapy. The discussion included a complete verbal, and/or written explanation of the examination results, any x-rays taken, the proposed diagnosis, and outline of the treatment plan. A schedule for future care needs was also explained. The patient verbalized an understanding of the instructions at this time and agreed to be an active participant in their treatment. If the patient should think of any questions or concerns after the visit, I have encouraged the patient to call the office.?Orthotic Dispensing:?The patient presents today for fitting and dispensing of orthotics. The inserts were checked against the prescription and found to be accurate. They were properly fitted to the patients feet and shoes in both weight-bearing and non-weight bearing attitudes. The patient was instructed to gradually increase the amount of time they are wearing the orthoses, starting with one hour the first day and thereon progressively increasing the amount of time used by one hours per day until they are comfortable to be worn all day and with all activities. They were asked to call the office if any signs of skin irritation were noted including redness, blistering or callous formation. The patient verbally indicated a full understanding of all the above information.? * Follow Up:?6 Months * Images: * Sign off status: Completed true * Provider:?Stevan Mcguire DPM Date:? 024 Generated for Mitali luis/Samantha/Italia on:?06/25/2024 10:16 PM EDT History and Physical Notes * HPI (History of Present Illness) Category Sub-Category Detail Notes Category Not es Foot Pain Aggrevated: any pressure Onset/Cause: genetic Course: worse, intermittent- -no pattern to her pain Duration: several months Nature: aching, tenderness Treatments: soaking Quality/Severity 5, scale 1-10 Location B/L, R>L, Great toe joint Physical Examination Category Sub-Category Detail Notes Section Note s L2999 Supplies Insoles-SSOT- graphite E - W 9-10.5 / M 7-8.5 Examination Category Sub-Category Detail Notes Category Not es Neuroma Pain PALPATION: No interspace pain noted on palpation Neurological SENSORY: Neurological exa m is normal, pain sensation normal, vibration sensation intact, pinprick sensation is normal in the lower extremities, denies, tingling, burning, anesthesia, paresthesia, hyperesthesia, B/L BABINSKI REFLEX: absent TINEL'S COMPRESSION: Negative tarsal annabelle flower, amy pedis, and medial calcaneal nerves B/L Dermatologic SKIN FINDINGS: Skin exam reveal s normal texture, elasticity, and tugor. There are no masses. The interspaces are clear, B/L Orthopedic GAIT ABNORMALITY: pronated, abducted, B/L BUNION: Medially prominent 1 st MPJ, (+) Pain on palpation, B/L, Lateral tracking 1st MPJ incompletely reducible MUSCLE STRENGTH: 5/5 all groups in a symmetrical fashion , B/L General Examination GENERAL APPEARANCE: pleasant , alert, well nourished, well developed, well hydrated, with good attention to hygene/body habitus, and in no acute distress ORIENTED: person,place, and ti me Vascular DP PULSES (B): 2/4, B/L PT PULSES (B): 2/4, B/L CAPILLARY FILL TIME: 3 secs. per digit, B/L TEMPERTURE GRADIENT (C): warm to cool, p roximal to distal, B/L TROPHIC CONDITION-TEXTURE/ELASTICITY/TURGOR/HAIR GROWTH (B): normal, B/L EDEMA (C): no edema TELANGECTASIA: absent VARICOSITIES: absent PIGMENTATION: normal, B/L X-Rays - IMAGING REPORT Findings: normal b one and soft tissue density consistent for patients age and sex Foot structure: reveals excess prona tion with, anterior break in cyme line HAV: increased First Inte rmetatarsal angle and Hallux Abductus angle consistent with Bunion deformity noted, hypertrophy of the dorsal and medial 1st MTH without subchondral cyst, moderate Views: 3 views of Foot, B/L Clinical Indication(s): Evaluate Biomech anical Deformity
--- OUTSIDE RECORDS SUMMARY | 2024-06-25 22:16 | XMS_ITS ---
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 Generated for Printi janelle/Samantha/eTransmitting on:?06/25/2024 10:16 PM EDT
[2024-06-25 22:24] LABS: MANUAL DIFF FLAG NO
--- NOTE | 2024-06-25 22:25 | PC.NURSE ---
spoke with Lisa from poison control and she advised to watch pt for anticholinergic toxicdrome, ekg q2h x3 watch for QRS widening, and give benzos for agitation.
[2024-06-25 22:27] LABS: Basophils Percent Auto 0.5 % (0-2); Eosinophils Percent Auto 0.4 % (0-4); Hematocrit 34.7 % (37.0-47.0); Hemoglobin 11.4 g/dl (12.0-16.0); Imm Gran Abs Auto 0.07 X10*3/uL (0.00-0.03); Imm Gran Pct Auto 0.8 % (0.0-0.4); Lymphocytes Absolute Auto 2.6 X10*3/uL (1.2-4.9); Lymphocytes Percent Auto 29.9 % (20-40); Mean Corpuscular HGB Conc 32.9 g/dl (31.0-35.0); Mean Corpuscular Hemoglobin 25.2 pg (27.0-33.0); Mean Corpuscular Volume 76.6 fL (80.0-98.0); Mean Platelet Volume 10.4 fL (9.4-12.3); Monocytes Absolute Auto 0.5 X10*3/uL (0.1-1.2); Monocytes Percent Auto 5.7 % (2-11); Neutrophils Absolute Auto 5.4 x10*3/uL (2.0-8.3); Neutrophils Percent Auto 62.7 % (45-73); Platelet Count 276 X10*3/uL (160-400); Red Blood Count 4.53 X10*6/uL (4.20-5.50); Red Cell Distribution Width 15.7 % (11.0-16.0); White Blood Count 8.6 X10*3/uL (4.8-10.8)
[2024-06-25 22:38] LABS: Amphetamine Screen Urine Not Detected (Not Detect); Barbiturates, Urine Not Detected (Not Detect); Benzodiazepines Screen Urine Not Detected (Not Detect); Buprenorphine Scr Not Detected (Not Detect); Cannabinoid Screen Urine Not Detected (Not Detect); Cocaine Screen Urine Not Detected (Not Detect); Fentanyl, urine Not Detected (Not Detect); Methadone Screen, Urine Not Detected (Not Detect); Opiate Screen Urine Not Detected (Not Detect); Oxycodone Screen Urine Not Detected (Not Detect); Phencyclidine Screen Urine Not Detected (Not Detect)
[2024-06-25 22:45] LABS: Acetaminophen LAB < 3 mcg/mL (<30); Alanine Aminotransferase 18 U/L (0-31); Albumin Level 4.2 g/dL (3.5-5.0); Alkaline Phosphatase 64 U/L (39-117); Anion Gap 12 (12-20); Aspartate Amino Transferase 29 U/L (5-31); Bilirubin Direct 0.1 mg/dL (0.0-0.5); Bilirubin Total 0.4 mg/dL (0.0-1.0); Blood Urea Nitrogen 11 mg/dL (9-16); Calcium 9.1 mg/dL (8.4-10.2); Carbon Dioxide 23 mmol/L (22-29); Chloride 108 mmol/L (96-108); Creatinine Clr Calc Pharmacy 112.5; Estimated Glomerular Filt Rate > 60; Ethanol < 10 mg/dL; Glucose Random 89 mg/dL (60-115); Potassium 3.8 mmol/L (3.3-5.1); Salicylate < 5.0 mg/dL (15-30); Sodium 139 mmol/L (135-145); Total Protein 7.3 g/dL (6.5-8.0)
[2024-06-25 23:02] LABS: Magnesium 2.3 mg/dL (1.6-2.6)
[2024-06-25 23:45] VITALS: BP 107/63; PULSE 65; RESP 14; TEMP 36.7; O2SAT 98
[2024-06-26] VITALS: BP 107/63; PULSE 86; RESP 17; O2SAT 97
--- NOTE | 2024-06-26 | ECG_ITS ---
Test Reason : OVERDOSE Blood Pressure : */* mmHG Vent. Rate : 64 BPM Atrial Rate : 64 BPM P-R Int : 142 ms QRS Dur : 80 ms QT Int : 414 ms P-R-T Axes : 52 73 48 degrees QTcB Int : 427 ms Normal sinus rhythm Normal ECG When compared with ECG of 26-Jun-2024 02:39, No significant change was found Referred By: Azul Rg Electronically Signed By: ROWDY DUGAN
[2024-06-26] MEDS: Potassium Chloride Packet 20 MEQ PACKET 40 MEQ PO (00:05)
--- NOTE | 2024-06-26 00:17 | PC.NURSE ---
spoke with Casandra from poison control, updated on vitals, labs and ekg, no new recommendations at this time
[2024-06-26 01:24] VITALS: BP 106/65; PULSE 63; RESP 15; TEMP 36.8; O2SAT 97
[2024-06-26 03:29] VITALS: BP 106/61; PULSE 60; RESP 14; TEMP 36.7; O2SAT 98
--- NOTE | 2024-06-26 08:35 | PC.NURSE ---
Assumed care of patient at 0645, patient appears to be in no apparent distress this am, calm and cooperative, offering no complaints to this RN at this time. Continue plan of care for CARE team jose
--- NOTE | 2024-06-26 08:52 | PHA.MEDREC ---
Addendum entered by Connie Johnson RPh 06/26/24 10:04: [facility] reviewed. patient is no longer on spironolactone. Original Note: Pharmacy Consult ? Medication Reconciliation Pharmacy has completed the medication reconciliation. Spoke to pt to confirm meds.
--- NOTE | 2024-06-26 10:40 | MHC.CARE ---
Pt meets the criteria for IPLOC. Section 12a in chart. Provider in agreement with disposition.
--- NOTE | 2024-06-26 11:44 | PC.NURSE ---
Patient requesting to go home, stating she is no longer suicidal and she feels she is safe to return home. Patient's sig other also reports that he feels she is safe to go home. Dr. Stewart at bedside to talk with patient and sig other. Dr. Stewart explained that patient is on S12a and he does not feel comfortable dischargin considering she attempted to overdose and this is not her first attempt. Per Dr. Stewart, psych consult to be placed
--- NOTE | 2024-06-26 12:57 | MHC.CARE ---
A 51A was filed secondary to reporting Pt overdosed on the medications in the bedroom while their 2 year old son was in the living room.
[2024-06-26 13:55] VITALS: BP 125/59; PULSE 88; RESP 16; TEMP 37.1; O2SAT 99
[2024-06-26 13:57] LABS: Alanine Aminotransferase 21 U/L (0-31); Albumin Level 4.2 g/dL (3.5-5.0); Alkaline Phosphatase 61 U/L (39-117); Anion Gap 11 (12-20); Aspartate Amino Transferase 34 U/L (5-31); Bilirubin Total 0.5 mg/dL (0.0-1.0); Blood Urea Nitrogen 10 mg/dL (9-16); Calcium 9.2 mg/dL (8.4-10.2); Carbon Dioxide 23 mmol/L (22-29); Chloride 108 mmol/L (96-108); Creatinine Clr Calc Pharmacy 108.1; Estimated Glomerular Filt Rate > 60; Glucose Random 103 mg/dL (60-115); Potassium 4.2 mmol/L (3.3-5.1); Sodium 138 mmol/L (135-145); Total Protein 7.5 g/dL (6.5-8.0)
[2024-06-26 15:07] VITALS: BMI 28.6
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
[2024-06-26] MEDS: prednisoLONE Acetate 1 % Oph Susp 5 ML DRPBTL 1 DROP EYE-BOTH (16:34)
[2024-06-26 19:45] VITALS: BP 121/66; PULSE 96; RESP 16; TEMP 36.9; O2SAT 98
[2024-06-26] MEDS: Penicillin V Potassium 250 MG TABLET 500 MG PO (21:05)
[2024-06-26] MEDS: Acetaminophen 325 MG TABLET 650 MG PO (21:05)
[2024-06-27 07:51] VITALS: BP 109/61; PULSE 85; RESP 16; TEMP 37.4; O2SAT 99
[2024-06-27] MEDS: Penicillin V Potassium 250 MG TABLET 500 MG PO ×2 (08:22→21:23)
[2024-06-27] MEDS: prednisoLONE Acetate 1 % Oph Susp 5 ML DRPBTL 1 DROP EYE-BOTH ×4 (08:22→21:23)
[2024-06-27 08:45] LABS: Estimated Average Glucose 114 mg/dL; Hemoglobin A1C 127.1014 umol/L; Hemoglobin A1c % 5.6 % (<6.0); Total Hemoglobin (HGBA1C) 3384.5331 umol/L
[2024-06-27 08:53] LABS: Cholesterol 183 mg/dL (<200); HDL Cholesterol 37 mg/dL (>40); LDL Cholesterol Calculated 133 mg/dL (<100); Triglycerides 66 mg/dL (<150)
[2024-06-27 09:01] LABS: TSH reflex Free T4 0.94 uIU/mL (0.32-4.0)
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
--- NOTE | 2024-06-27 10:06 | MHC.CARE ---
T/W spoke with DCF who contacted T/W for an update and further collateral on Pt. DCF was informed Pt is on unit M3 and identified the points of contact moving forward. They also reported the 51A is being screened in at this time as they are concerned about the attempt and level of risk.
[2024-06-27 19:52] VITALS: BP 123/67; PULSE 80; RESP 16; TEMP 36.9; O2SAT 99
[2024-06-28 07:55] VITALS: BP 111/55; PULSE 93; RESP 18; TEMP 37.1; O2SAT 98
[2024-06-28] MEDS: Penicillin V Potassium 250 MG TABLET 500 MG PO ×2 (08:54→21:03)
[2024-06-28] MEDS: prednisoLONE Acetate 1 % Oph Susp 5 ML DRPBTL 1 DROP EYE-BOTH ×2 (08:55→21:12)
--- NOTE | 2024-06-28 10:31 | P.PNPSI_ITS ---
Subjective Subjective Date of Service: 06/28/24 Reason For Visit: SI/attempt Subjective Notes: Section 12B Interim History: Active on unit, attending groups. Patient reports feeling good and ready to return home; pt stated, the minute I took the overdose I regretted it . Pt continues to report she is not interested in psychiatric medication. Pt stated, if I change my mind, I'll let my therapist know so she can refer me to someone . denies SI/HI/VH/AH. 12b up on 06/29/24. Attending Groups: Yes Mental Status Exam Mental Status Exam Narrative: Pt is alert and oriented; behavior is cooperative and calm; dressed in casual attire; mood is described as good; eye contact appropriate; Speech is normal rate, volume and not pressured; thought process is organized; Thought content is on discharge; denies SI/HI/VH/AH. Diagnostics Vital Signs (24Hr): Vital Signs - 24 hr 06/27/24 19:52 06/28/24 07:55 Temperature 98.4 F 98.7 F Pulse Rate 80 93 Respiratory Rate 16 18 Blood Pressure 123/67 111/55 L Pulse Oximetry 99 98 Oxygen Delivery Method Room Air Room Air BMI result Body Mass Index 28.6 Labs 06/25/24 22:19 06/26/24 13:27 Labs: Laboratory Results - last 48 hr 06/26/24 06/27/24 06/27/24 13:27 08:04 08:05 Sodium 138 Potassium 4.2 Chloride 108 Carbon Dioxide 23 Anion Gap 11 L BUN 10 Creatinine 0.77 Estim Creat Clear Calc 108.1 Estimated GFR > 60 Random Glucose 103 Estimat Average Glucose 114 Hemoglobin A1c % 5.6 Calcium 9.2 Total Bilirubin 0.5 AST 34 H ALT 21 Alkaline Phosphatase 61 Total Protein 7.5 Albumin 4.2 Triglycerides 66 Cholesterol 183 LDL Cholesterol, Calc 133 H HDL Cholesterol 37 L TSH 0.94 Medications Medications Current Medications Acetaminophen (Acetaminophen 325 Mg Tablet) 650 mg PO Q6H PRN PRN Reason: Headache/Pain, Scale 1-10 Last Admin: 06/26/24 21:05 Dose: 650 mg Al Hydroxide/Mg Hydroxide (Magnesium Hydrox/Alum Hydrox 30 Ml Oral.Susp) 30 ml PO Q6H PRN PRN Reason: Heartburn/Nausea Hydroxyzine HCl (Hydroxyzine Hcl 50 Mg Tablet) 50 mg PO TID PRN PRN Reason: mild anxiety Magnesium Hydroxide (Milk Of Magnesia 30 Ml Oral.Susp) 30 ml PO DAILY PRN PRN Reason: Constipation Nicotine (Nicotine 21 Mg Patch.Td24) 21 mg TRANSDERMA DAILY PRN PRN Reason: smoking cessation Nicotine Polacrilex (Nicotine Polacrilex 2 Mg Gum) 4 mg BUCCAL Q2H PRN PRN Reason: Nicotine Cravings Non-Formulary Medication (Cyclosporine [Restasis]) 1 drop EYE-BOTH BID [facility] Non-Formulary Medication (Tretinoin) 1 appl TOPICAL Q2D [facility] Penicillin V Potassium (Penicillin V Potassium 250 Mg Tablet) 500 mg PO BID [facility] Last Admin: 06/28/24 08:54 Dose: 500 mg Prednisolone Acetate (Prednisolone Acetate 1 % Oph Susp 5 Ml Drpbtl) 1 drop EYE-BOTH QID [facility] Last Admin: 06/28/24 08:55 Dose: 1 drop Trazodone HCl (Trazodone Hcl 50 Mg Tablet) 50 mg PO BEDTIME MRX1 PRN PRN Reason: Insomnia Allergies Allergies Allergy/AdvReac Type Severity Reaction Status Date / Time No Known Allergies Allergy Verified 06/25/24 21:23 Assessment & Plan Assessment & Plan (1) MDD (major depressive disorder), recurrent episode, moderate: Status: Acute Code(s): F33.1 - Major depressive disorder, recurrent, moderate Plan Patient is a 33-year-old female with history of MDD who self presented to [facility] ER due to suicide attempt via overdose on hydroxyzine and Benadryl secondary to life stressors. Plan: 12B 15 minute safety checks Obtain collateral Encourage groups Discharge planning 06/28: Active on unit, attending groups. Patient reports feeling good and ready to return home; pt stated, the minute I took the overdose I regretted it . Pt continues to report she is not interested in psychiatric medication. Pt stated, if I change my mind, I'll let my therapist know so she can refer me to someone . denies SI/HI/VH/AH. 12b up on 06/29/24. Patient educated on: diagnosis, medication risk/benefits and therapeutic strategies Reason for continued inpatient stay Substantial Risk for: stable for discharge Time Spent With Patient Time: Total time managing care of this patient today _20___ minutes.
[2024-06-28 20:00] VITALS: BP 123/66; PULSE 81; RESP 16; TEMP 36.9; O2SAT 99
[2024-06-28] MEDS: CYCLOSPORINE 1 EACH EYE-BOTH (21:02)
[2024-06-29 07:43] VITALS: BP 112/62; PULSE 90; RESP 14; TEMP 36.8; O2SAT 97
[2024-06-29] MEDS: Penicillin V Potassium 250 MG TABLET 500 MG PO (08:33)
[2024-06-29] MEDS: prednisoLONE Acetate 1 % Oph Susp 5 ML DRPBTL 1 DROP EYE-BOTH (08:34)
[2024-06-29] MEDS: CYCLOSPORINE 1 EACH EYE-BOTH (08:34)
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
== END 2024-06-29 10:12 | disposition home or self-care (01) | DRG 751 ==
LOC: HO.ED 06-26 07:31 → HO.PADLT16 06-26 12:46
PROVIDERS: Admitting Provider Psychiatry & Neurology Psychiatry; Emergency Provider Emergency Medicine; PCP Physician Assistant; Responsible Provider Registered Nurse; Visit Provider Psychiatry & Neurology Psychiatry
DX: F33.1 Major depressive disorder, recurrent, moderate (principal); T43.592A Poisoning by other antipsychotics and neuroleptics, intentional self-harm, initial encounter; Z79.899 Other long term (current) drug therapy
CPT/HCPCS: 36415; 80048; 80053; 80061; 80076; 80143; 80179; 80307; 83036; 83735; 84443; 85025; 93005; 99285; S9485

== ENCOUNTER → 2024-06-25 21:32 | Outpatient (BNV) | payer OTHER, SELFPAY | PROVIDERS: Admitting Provider Psychiatry & Neurology Psychiatry; Emergency Provider Emergency Medicine; PCP Physician Assistant; Visit Provider Internal Medicine | DX: R41.82 Altered mental status, unspecified (principal); R94.31 Abnormal electrocardiogram [ECG] [EKG] | CPT/HCPCS: 93010 ==

== ENCOUNTER → 2024-06-26 04:39 | Outpatient (BNV) | payer OTHER, SELFPAY | PROVIDERS: Admitting Provider Psychiatry & Neurology Psychiatry; Emergency Provider Emergency Medicine; PCP Physician Assistant; Visit Provider Internal Medicine | DX: R41.82 Altered mental status, unspecified (principal) | CPT/HCPCS: 93010 ==

== ENCOUNTER → 2024-06-26 12:46 | Outpatient (BNV) | payer OTHER, SELFPAY | PROVIDERS: Admitting Provider Psychiatry & Neurology Psychiatry; Emergency Provider Emergency Medicine; PCP Physician Assistant; Responsible Provider Registered Nurse; Visit Provider Registered Nurse | DX: F33.1 Major depressive disorder, recurrent, moderate (principal) | CPT/HCPCS: 99231; 99233 ==